=== PATIENT | male | born 1960 | race Caucasian/White ===

== ENCOUNTER 2018-11-06 09:26 | Emergency (ER) | payer BC ==
[2018-11-06 10:07] LABS: HEMATOCRIT 43.4 % (39.0-50.0); IMMATURE GRANULOCYTES 0.3 % (0.0-5.0); MEAN CELL VOLUME 102.4 fL CALC (80.0-100.0); MEAN CORPUSCULAR HGB 35.4 pG CALC (26.0-32.0); MEAN CORPUSCULAR HGB CONC 34.6 g/L CALC (32.0-36.0); NEUT# 5.32 thou/uL (1.82-7.42); RED BLOOD COUNT 4.24 mill/uL (4.70-6.10); RED CELL DISTRI WIDTH 12.2 % (11.5-15.5)
[2018-11-06] MEDS ORDERED: LOSARTAN POTASS1 TA1 PO (10:20)
[2018-11-06] MEDS ORDERED: ADULT ASPIRIN R81 MG PO (10:22)
[2018-11-06 10:27] LABS: ALBUMIN 4.4 g/dL (3.2-5.0); ALKALINE PHOSPHATASE 57 u/l (38-126); ANION GAP 16 (6-22 (CALC)); BILIRUBIN, TOTAL 1.1 mg/dL (0.0-1.4); BUN 14 mg/dL (9-20); BUN/CREATININE RATIO 15 (12-20 (CALC)); CARBON DIOXIDE 25 mmol/l (22-30); CHLORIDE 101 mmol/l (95-108); CREATININE 0.9 mg/dL (0.7-1.3); GFR > 60 ML/MIN (>=60 (CALC)); GFR FOR AFR.AMER. > 60 ML/MIN (>=60 (CALC)); POTASSIUM 4.2 mmol/l (3.5-5.1); SGOT/AST 30 u/l (17-59); SODIUM 138 mmol/l (137-146); TOTAL PROTEIN 7.2 g/dL (6.3-8.2)
[2018-11-06] MEDS ORDERED: ONDANSETRON4 MG PO (10:35)
[2018-11-06] MEDS ORDERED: TORADOL PO (10:35)
[2018-11-06] MEDS ORDERED: TAM75CAP PO (10:35)
[2018-11-06] MEDS ORDERED: PROVENTIL108 MCG/AC IN (10:54)
[2018-11-06] MEDS ORDERED: TESSALON PER100 MG PO (10:54)
[2018-11-06] MEDS ORDERED: ZITHROMAX250 MG PO (10:54)
[2018-11-06 11:10] VITALS: BP 147/85
== END 2018-11-06 11:10 | disposition home or self-care (01) | DRG 153 ==
LOC: ED 09:26
PROVIDERS: Emergency Medicine
DX: J11.1 Influenza due to unidentified influenza virus with other respiratory manifestations (principal)